=== PATIENT | female | born 1990 | race Caucasian/White ===

== ENCOUNTER 2022-12-15 15:41 | Emergency (ER) | payer OTHER ==
[~2022-12-15 15:41] MED LIST: ADDERALL20 MG PO; BACTRIM DS1 TAB PO; BUSPAR5 MG PO; GABAPENTIN100 MG PO
== END 2022-12-15 16:15 | disposition left against medical advice (07) | DRG 951 ==
LOC: ED 15:41 → LWOBS 16:15
DX: Z53.21 Procedure and treatment not carried out due to patient leaving prior to being seen by health care provider (principal)

== ENCOUNTER 2023-01-12 21:14 | Emergency (ER) | payer OTHER ==
[~2023-01-12] VITALS: Ht 165.1 cm; Wt 43.0 kg
[2023-01-12 21:31] VITALS: BP 106/70
[2023-01-12 21:45] VITALS: BP 111/69
[2023-01-12 22:00] VITALS: BP 112/69
[2023-01-12 22:15] VITALS: BP 114/75
[2023-01-12 22:30] VITALS: BP 110/75
[2023-01-12 22:53] LABS: BASO% 0.4 % (0-3); EOS% 2.7 % (0-8); HEMATOCRIT 35.3 % (37.0-47.0); HEMOGLOBIN 11.8 g/dl (12.0-16.0); IMMATURE GRANULOCYTES 0.2 % (0.0-5.0); LYMPH% 25.2 % (15-41); MEAN CELL VOLUME 92.7 fL CALC (80.0-100.0); MEAN CORPUSCULAR HGB CONC 33.4 g/dL CAL (32.0-36.0); MONO% 9.6 % (2-13); NEUT# 6.31 thou/uL (2.00-7.15); NEUT% 61.9 % (42-76); RED BLOOD COUNT 3.81 mill/uL (4.20-5.60); RED CELL DISTRI WIDTH 14.8 % (11.5-15.5); URINE BLOOD DIPSTICK Negative (NEGATIVE); URINE CLARITY Slightly Cloudy; URINE GLUCOSE - DIPSTICK Negative (NEGATIVE); URINE KETONE Trace mg/dL (NEGATIVE); URINE LEUK ESTERASE Small (Negative); URINE NITRITE - DIPSTICK Negative (Negative); URINE PH 8.5 (4.5-8.0); URINE PROTEIN - DIPSTICK 30 mg/dL (NEG-TRACE); URINE SPECIFIC GRAVITY 1.015
[2023-01-12 22:59] LABS: URINE COLOR Yellow
[2023-01-12 23:01] LABS: URINE SQUAMOUS EPITHELIAL CELL MANY EPI/hpf (0-FEW)
[2023-01-12 23:02] LABS: ALBUMIN 3.8 g/dL (3.2-5.0); ALKALINE PHOSPHATASE 56 u/l (38-126); ANION GAP 10 (6-22 (CALC)); BILIRUBIN, TOTAL 0.4 mg/dL (0.02-1.3); BUN 10 mg/dL (7-17); BUN/CREATININE RATIO 15 (12-20 (CALC)); CARBON DIOXIDE 22 mmol/l (22-30); CHLORIDE 108 mmol/l (95-108); CREATININE 0.6 mg/dL (0.5-1.0); GFR FOR AFR.AMER. > 60 ML/MIN (>=60 (CALC)); GFR OTHER RACES > 60 ML/MIN (>=60 (CALC)); SGOT/AST 27 u/l (14-36); SODIUM 137 mmol/l (137-146); TOTAL PROTEIN 6.9 g/dL (6.3-8.2)
[2023-01-13] MEDS ORDERED: PYRIDIUM200 MG PO (00:41)
[2023-01-13] MEDS ORDERED: BACTRIM DS1 TAB PO (00:41)
[2023-01-13 01:30] VITALS: BP 110/75
== END 2023-01-13 01:33 | disposition home or self-care (01) ==
LOC: ED 21:14
PROVIDERS: Family Medicine
DX: N39.0 Urinary tract infection, site not specified (principal); F41.9 Anxiety disorder, unspecified; Z87.442 Personal history of urinary calculi